=== PATIENT | female | born 1990 | race Caucasian/White ===

== ENCOUNTER 2016-05-10 16:25 | Inpatient (IN) | payer OTHER ==
[2016-05-10] MEDS ORDERED: Acetaminophen TAB* 325 MG PO PRN (18:36)
[2016-05-10] MEDS ORDERED: LORazepam TAB(*) 1 MG PO PRN (18:36)
[2016-05-10] MEDS ORDERED: Al Hydrox/Mg Hydrox/Simet LIQ* 30 ML UDC PO PRN (18:36)
--- NOTE | 2016-05-10 19:13 | ED ---
Lorraine Ritchie Claudia, scribed for Shawn Pressley MD on 05/10/16 at 1639 . Psychiatric Complaint - HPI Summary HPI Summary: 26 year old female presents to the ED after being transferred from [facility]. Pt presents with c/c of with depression and anxiety Pt has been cutting herself since last night. Pt notes that she has had these episodes in the past but lately it has been more difficult to avoid and stop. Pt states PMHx of Depression in which she takes Zoloft however she doesn't think the Rx is working because it makes her more anxious and has not been helping. Pt does not want to cut herself anymore and has come seeking a MHE. Pt notes she has a massive breakdown last night and tried to go for a walk and take a shover which nml helps but it did not help last night and she became physically and verbally aggressive and then began cutting herself. UTD Teatanus is noted. - History Of Current Complaint Time Seen by Provider: 05/10/16 16:29 Hx Obtained From: Patient Onset/Duration: Sudden Onset, Lasting Hours, Still Present Character: Depressed, Anxious Aggravating Factor(s): Nothing Alleviating Factor(s): Nothing - Allergies/Home Medications Allergies/Adverse Reactions: Allergies Allergy/AdvReac Type Severity Reaction Status Date / Time No Known Allergies Allergy Verified 05/10/16 16:38 PMH/Surg Hx/FS Hx/Imm Hx Previously Healthy: Yes Endocrine/Hematology History: Denies: Hx Diabetes Psychiatric History: Reports: Hx Anxiety, Hx Depression - Family History Known Family History: Positive: Diabetes Family History: CA, Depression - Social History Lives: With Family Alcohol Use: Rare Hx Substance Use: No Substance Use Type: Reports: None Hx Tobacco Use: No Smoking Status (MU): Never Smoked Tobacco Review of Systems Constitutional: Negative Negative: Fever Eyes: Negative ENT: Negative Cardiovascular: Negative Respiratory: Negative Gastrointestinal: Negative Genitourinary: Negative Musculoskeletal: Negative Skin: Negative Neurological: Negative Positive: Anxious, Depressed All Other Systems Reviewed And Are Negative: Yes Physical Exam - Summary Physical Exam Summary: VITAL SIGNS: Reviewed. GENERAL: Patient is a well developed and nourished female who is lying comfortable in the stretcher. Patient is not in any acute respiratory distress. HEAD AND FACE: No signs of trauma. No ecchymosis, hematomas or skull depressions. No sinus tenderness. EYES: PERRLA, EOMI x 2, No injected conjunctiva, no nystagmus. EARS: Hearing grossly intact. Ear canals and tympanic membranes are within normal limits. MOUTH: Oropharynx within normal limits. NECK: Supple, trachea is midline, no adenopathy, no JVD, no carotid bruit, no c- spine tenderness, neck with full ROM. CHEST: Symmetric, no tenderness at palpation LUNGS: Clear to auscultation bilaterally. No wheezing or crackles. CVS: Regular rate and rhythm, S1 and S2 present, no murmurs or gallops appreciated. ABDOMEN: Soft, non-tender. No signs of distention. No rebound no guarding, and no masses palpated. Bowel sounds are normal. EXTREMITIES: FROM in all major joints, no edema, no cyanosis or clubbing. NEURO: Alert and oriented x 3. No acute neurological deficits. Speech is normal and follows commands. SKIN: Dry and warm. Multiple areas in her arms and abdomen with razor blade cuts. PSYCH: Depressed, quiet, denies any suicidal thoughts or plan. No homicidal thoughts or plan. No signs of psychosis or pressure speech. No tangential speech. Triage Information Reviewed: Yes Vital Signs On Initial Exam: Initial Vitals Temp Pulse Resp BP Pulse Ox 98.2 F 66 20 106/77 99 05/10/16 16:33 05/10/16 16:33 05/10/16 16:33 05/10/16 16:33 05/10/16 16:33 Vital Signs Reviewed: Yes Diagnostics - Vital Signs Vital Signs Temp Pulse Resp BP Pulse Ox 05/10/16 16:33 98.2 F 66 20 106/77 99 - Laboratory Lab Statement: Any lab studies that have been ordered have been reviewed, and results considered in the medical decision making process. Course/Dx - Course Assessment/Plan: 26 year old female is transferred from [facility] having anxiety, depression and cutting herself since last night. She had PMHx of episodes in the past and she has history of depression which she is taking Zoloft for. Blood work done at [facility] is within nml limits, the pt is medically clear and she is awaiting a MHE.MHE was done and was accepted for admission by Dr. Smith and is hemodynamically stable. - Differential Dx/Clinical Impression Provider Diagnosis: DEPRESSIVE DISODER - Physician Notifications Patient Is Medically Stable For: Psych Evaluation - 4:39 Discharge - Discharge Plan Condition: Stable Disposition: ADMITTED TO [facility] documentation as recorded by the Lorraine fernández Claudia accurately reflects the service I personally performed and the decisions made by , Shawn Pressley MD.
[2016-05-11] MEDS ORDERED: Albuterol HFA INHALER* 8 gm MDI INH PRN (08:51)
[2016-05-11] MEDS ORDERED: traZODone TAB* 50 MG TAB PO PRN (08:52)
[2016-05-11] MEDS: hydrOXYzine HCL TAB* 50 MG PO PRN (09:25)
[2016-05-11] MEDS: Vitamin THERAPEUTIC TAB PO SCH (09:26)
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
[2016-05-11] MEDS: traZODone TAB* 50 MG TAB PO SCH (21:25)
[2016-05-12] MEDS: Vitamin THERAPEUTIC TAB PO SCH (08:54)
[2016-05-12] MEDS: hydrOXYzine HCL TAB* 50 MG PO PRN (08:55)
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
[2016-05-12] MEDS ORDERED: Nicotine Inhaler* 10 MG AMP INH PRN (12:09)
[2016-05-12] MEDS: LEVONORGESTREL PO SCH (12:35)
[2016-05-12] MEDS: ETHINYL ESTRADIOL PO SCH (12:35)
[2016-05-12] MEDS: DULoxetine DR CAP* 30 MG CAP.DR PO SCH (12:36)
[2016-05-12] MEDS: traZODone TAB* 50 MG TAB PO SCH (23:09)
[2016-05-13 07:25] VITALS: BP 112/71
[2016-05-13] MEDS: Vitamin THERAPEUTIC TAB PO SCH (08:34)
[2016-05-13] MEDS: DULoxetine DR CAP* 30 MG CAP.DR PO SCH (08:34)
[2016-05-13] MEDS: LEVONORGESTREL PO SCH (08:35)
[2016-05-13] MEDS: hydrOXYzine HCL TAB* 25 MG PO PRN ×2 (08:35→16:44)
[2016-05-13] MEDS: ETHINYL ESTRADIOL PO SCH (08:35)
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
== END 2016-05-13 17:25 | disposition home or self-care (01) | DRG 755 ==
LOC: ED 16:25 → BSU 18:12
PROVIDERS: ADMIT Psychiatry & Neurology Psychiatry; ATTEND Psychiatry & Neurology Psychiatry
DX: F43.25 Adjustment disorder with mixed disturbance of emotions and conduct (principal); H18.609 Keratoconus, unspecified, unspecified eye; J45.909 Unspecified asthma, uncomplicated; Z81.8 Family history of other mental and behavioral disorders; Z81.1 Family history of alcohol abuse and dependence; Z81.0 Family history of intellectual disabilities; Z79.899 Other long term (current) drug therapy
CPT/HCPCS: 96102; 99222; 99231; 99238; A9270-GY

== ENCOUNTER 2017-08-01 22:47 | Emergency (ER) | payer OTHER ==
[2017-08-01 22:54] VITALS: BP 148/99
[2017-08-02] MEDS ORDERED: Ibuprofen TAB* 600 MG PO ONE (00:05)
[2017-08-02] MEDS ORDERED: Ibuprofen TAB* 600 MG ONE (00:07)
[2017-08-02] MEDS ORDERED: traMADol TAB* 50 MG PO ONE (00:53)
[2017-08-02] MEDS ORDERED: traMADol TAB* 50 MG ONE (00:59)
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
--- NOTE | 2017-08-02 07:46 | RAD ---
HISTORY: Head injury COMPARISONS: None TECHNIQUE: Multiple contiguous axial CT scans were obtained of the head without intravenous contrast. FINDINGS: HEMORRHAGE/INFARCT: There is no hemorrhage or acute infarct. MASSES/SHIFT: There is no mass or shift. EXTRA-AXIAL SPACES: There are no extra-axial fluid collections. SULCI AND VENTRICLES: The sulci and ventricles are normal in size and position for the patient's stated age. CEREBRUM: There are no focal parenchymal abnormalities. BRAINSTEM: There are no focal parenchymal abnormalities. CEREBELLUM: There are no focal parenchymal abnormalities. VESSELS: The vessels are grossly normal. PARANASAL SINUSES: There is opacification of the ethmoid air cells, with air-fluid levels of the maxillary sinuses bilaterally and of the sphenoid sinus. ORBITS: The orbits are unremarkable. BONES AND SOFT TISSUE: There is soft tissue swelling along the left parietal scalp. OTHER: None IMPRESSION: 1. NO ACUTE INTRACRANIAL PATHOLOGY. 2. MODERATE SINUS MUCOSAL INFLAMMATORY DISEASE, WITH AIR-FLUID LEVELS IN THE SPHENOID SINUS AND MAXILLARY SINUSES BILATERALLY.. IN THE CORRECT CLINICAL SETTING, THIS MAY REPRESENT ACUTE SINUSITIS
== END 2017-08-02 01:05 | disposition home or self-care (01) ==
LOC: ED 22:47
DX: S01.01XA Laceration without foreign body of scalp, initial encounter (principal); S09.90XA Unspecified injury of head, initial encounter; S30.810A Abrasion of lower back and pelvis, initial encounter; S80.212A Abrasion, left knee, initial encounter; S80.211A Abrasion, right knee, initial encounter; S60.512A Abrasion of left hand, initial encounter; S60.511A Abrasion of right hand, initial encounter; V86.99XA Unspecified occupant of other special all-terrain or other off-road motor vehicle injured in nontraffic accident, initial encounter; Y92.89 Other specified places as the place of occurrence of the external cause
CPT/HCPCS: 70450; 99282; A9270-GY

== ENCOUNTER 2017-08-11 15:39 | Emergency (ER) | payer OTHER ==
--- NOTE | 2017-08-11 16:51 | ED ---
ED Suture/Wound Check - HPI Summary HPI Summary: 27 0 presents the ED to have nathan removed. States she had 3 nathan placed 10 days ago after following accident from posterior scalp. Has not had any complications. Denies any drainage or bleeding. No fever no chills. No past medical history no other complaints. - History Of Current Complaint Chief Complaint: EDLacSutureRecheck Stated Complaint: NEEDS STAPLE REMOVAL Time Seen by Provider: 08/11/17 16:21 Hx Obtained From: Patient Surgical Site: Posterior scalp Pain Intensity: 0 Pain Scale Used: 0-10 Numeric Procedure Type: staple placement Surgery Date: 08/01/17 Head: 1 - 3 nathan - Allergies/Home Medications Allergies/Adverse Reactions: Allergies Allergy/AdvReac Type Severity Reaction Status Date / Time No Known Allergies Allergy Verified 05/12/16 17:12 PMH/Surg Hx/FS Hx/Imm Hx Endocrine/Hematology History: Denies: Hx Diabetes Psychiatric History: Reports: Hx Anxiety, Hx Depression Denies: Hx Eating Disorder, Hx of Violent Episodes Against Others - Surgical History Surgery Procedure, Year, and Place: None - Immunization History Date of Tetanus Vaccine: up-to-date Infectious Disease History: No Infectious Disease History: Denies: Traveled Outside the [place] in Last 30 Days - Family History Known Family History: Positive: Diabetes Family History: CA, Depression - Social History Alcohol Use: Rare Hx Substance Use: No Substance Use Type: Reports: None Hx Tobacco Use: No Smoking Status (MU): Never Smoked Tobacco Review of Systems Constitutional: Negative Cardiovascular: Negative Respiratory: Negative Positive: Other - need staple removal Neurological: Negative All Other Systems Reviewed And Are Negative: Yes Physical Exam Triage Information Reviewed: Yes Vital Signs On Initial Exam: Initial Vitals Temp Pulse Resp BP Pulse Ox 97.9 F 63 16 125/82 100 08/11/17 15:53 08/11/17 15:53 08/11/17 15:53 08/11/17 15:53 08/11/17 15:53 Vital Signs Reviewed: Yes Appearance: Positive: Well-Appearing, No Pain Distress, Well-Nourished Skin: Positive: Warm, Skin Color Reflects Adequate Perfusion, Dry, Other - 3 nathan noted in posterior scalp removed without complication wound healing nicely well approximated and closed no signs of infection erythema swelling or discharge. No dehiscence. Negative: Cold, Numb, Cyanosis @, Pale, Erythema @ Head/Face: Positive: Normal Head/Face Inspection, Scalp - As noted above Eyes: Positive: Conjunctiva Clear ENT: Positive: Hearing grossly normal Neck: Positive: Supple, Nontender Respiratory/Lung Sounds: Positive: Clear to Auscultation, Breath Sounds Present. Negative: Rales, Rhonchi, Wheezes Cardiovascular: Positive: Normal, RRR, Pulses are Symmetrical in both Upper and Lower Extremities. Negative: Murmur, Rub Musculoskeletal: Positive: Normal, Strength/ROM Intact Neurological: Positive: Normal, Sensory/Motor Intact, Alert, Oriented to Person Place, Time Diagnostics - Vital Signs Vital Signs Temp Pulse Resp BP Pulse Ox 08/11/17 15:53 97.9 F 63 16 125/82 100 - Laboratory Lab Statement: Any lab studies that have been ordered have been reviewed, and results considered in the medical decision making process. Course/Dx - Course Course Of Treatment: 3 nathan removed without complication wound appears to be healing nicely. Keep wound clean and dry. No other concerns at this time - Differential Diagnoses Differential Diagnoses: Healing Wound, Other - Staple removal - Clinical Impression Provider Diagnoses: Removal of nathan Discharge - Sign-Out/Discharge Documenting (check all that apply): Discharge - Discharge Plan Condition: Good Disposition: HOME Referrals: Ruby Schmitt DO [Primary Care Provider] - Additional Instructions: Keep clean and dry. Gently wash while in shower. Any new or worsening symptoms please seek medical attention promptly. - Billing Disposition and Condition Condition: GOOD Disposition: HOME
[2017-08-11 17:19] VITALS: BP 107/76
== END 2017-08-11 17:17 | disposition home or self-care (01) ==
LOC: ED 15:39
DX: S01.01XD Laceration without foreign body of scalp, subsequent encounter (principal); Z48.02 Encounter for removal of sutures; X58.XXXD Exposure to other specified factors, subsequent encounter
CPT/HCPCS: 99282